=== PATIENT | female | born 1980 | race Caucasian/White ===

== ENCOUNTER 2022-02-08 07:33 | Inpatient (IN) | payer BC ==
[2022-02-07 12:18] LABS: #Basophils 0.1 10x3/uL (0.0-0.2); #Eosinphils 0.1 10x3/uL (0.0-0.5); #Monocytes 1.1 10x3/uL (0.0-1.1); #Neutrophils 8.1 10x3/uL (1.5-8.4); %Basophils 0.4 % (0.0-2.0); %Eosinophils 1.2 % (0.0-6.0); %Lymphocytes 16.4 % (18.0-47.0); %Monocytes 9.5 % (0.0-10.0); Hemoglobin 13.1 g/dL (12.0-15.5); Mean Corpuscular HGB CONC 34.8 g/dL (32.0-36.0); Mean Corpuscular Hemoglobin 31.3 pg (27.0-33.0); Mean Corpuscular Volume 89.7 fl (81.6-98.3); Mean Platelet Volume 9.1 fl (7.4-10.4); Platelet Count 280 10x3/uL (150-450); RBC Distribution Width 13.2 % (11.5-14.5); Red Blood Cell (RBC) Count 4.19 10x6/uL (3.90-5.03); White Blood Cell (WBC) Count 11.2 10x3/uL (3.5-10.5)
[2022-02-07 12:41] LABS: SARS-CoV-2 NAA Rapid Test Not Detected (NotDetected)
[2022-02-07 12:41] LABS: Syphilis Antibody Nonreactive (Nonreactive); Syphilis Antibody Index 0.05 S/CO (<1.00 Non-Reactive)
[2022-02-07 12:43] LABS: HBSAg Index 0.17 S/CO (0-0.99); Hep B Surf Ag Non-Reactive S/CO (NonReactive)
[2022-02-08] MEDS: Lactated Ringer's 1,000 ML IV SCH ×3 (07:55→17:56)
[2022-02-08 08:07] VITALS: BMI 46.3
[2022-02-08] MEDS ORDERED: Famotidine/PF 20 mg/2ml Vial SLOW IVP PRN ×2 (08:36→09:15)
[2022-02-08] MEDS ORDERED: hydrALAZINE 20 MG/ML VIAL SLOW IVP PRN ×2 (08:36→08:52)
[2022-02-08] MEDS ORDERED: Promethazine HCl 25 MG/ML VIAL IM PRN ×2 (08:36→09:27)
[2022-02-08] MEDS ORDERED: Lactated Ringer's 1,000 ML IV SCH (08:36)
[2022-02-08] MEDS ORDERED: CEFAZOLIN 2 GM in Sodium Chloride 0.9% 100 ML IVPB SCH ×2 (08:36→09:15)
[2022-02-08] MEDS ORDERED: Bicitra 30 ML UDCUP PO PRN (08:36)
[2022-02-08] MEDS ORDERED: Ondansetron PF 4 MG/2 ML Vial IVP PRN ×2 (08:36→09:27)
[2022-02-08] MEDS ORDERED: Lanolin Ointment 7 GM TUBE TOP PRN (08:52)
[2022-02-08] MEDS ORDERED: Bisacodyl 10 MG SUPP PR PRN (08:52)
[2022-02-08] MEDS ORDERED: HYDROcodone/Acetaminophen 5/325 mg Tablet PO PRN ×4 (08:52→22:00)
[2022-02-08] MEDS ORDERED: diphenhydrAMINE 25 MG CAP PO PRN (08:52)
[2022-02-08] MEDS ORDERED: Boostrix 0.5 ML (Tdap) VIAL (>/=7 yrs of age) IM ONE (08:52)
[2022-02-08] MEDS ORDERED: Tranexamic Acid 1,000 MG/10 ML VIAL ONE (08:55)
[2022-02-08] MEDS ORDERED: Carboprost 250 MCG/ML AMP ONE (08:55)
[2022-02-08] MEDS ORDERED: Methylergonovine 0.2 MG/ML VIAL ONE (08:57)
[2022-02-08] MEDS ORDERED: ePHEDrine Sulfate 50 MG/10 ML VIAL ONE (09:16)
[2022-02-08] MEDS ORDERED: Ketorolac Tromethamine 30 MG/ML VIAL ONE (09:16)
[2022-02-08] MEDS ORDERED: Morphine PF 10 MG/10 ML VIAL ONE (09:16)
[2022-02-08] MEDS ORDERED: PHENYLEPHRINE-NS 100 MCG/ML 10 ML SYRINGE ONE (09:16)
[2022-02-08] MEDS ORDERED: Phenylephrine 40 MG/NS 250 ML 250 ML ONE (09:16)
[2022-02-08] MEDS ORDERED: Oxytocin 10 UNITS/ML VIAL ONE (09:16)
[2022-02-08] MEDS ORDERED: Ondansetron PF 4 MG/2 ML Vial ONE (09:16)
[2022-02-08] MEDS ORDERED: Promethazine HCl 25 MG SUPP PR PRN (09:27)
[2022-02-08] MEDS ORDERED: Naloxone HCl 0.4 mg/ml Vial IVP PRN ×2 (09:27)
[2022-02-08] MEDS ORDERED: Moisturizing Cream (Eucerin) 113 GM JAR TOP PRN (09:27)
[2022-02-08] MEDS ORDERED: Naloxone HCl 0.4 mg/ml Vial IV PRN (09:27)
[2022-02-08] MEDS ORDERED: Fentanyl 100 MCG/2 ML VIAL SLOW IVP PRN (09:27)
[2022-02-08] MEDS ORDERED: Meperidine HCl/PF 25 MG/ML VIAL SLOW IVP PRN (09:27)
[2022-02-08] MEDS ORDERED: diphenhydrAMINE 50 MG/ML VIAL IVP PRN (09:27)
[2022-02-08] MEDS ORDERED: Ondansetron HCl/PF 4 MG/2 ML Vial IVP PRN (09:27)
[2022-02-08] MEDS ORDERED: Communication Order-Pharmacy FS SCH (09:30)
[2022-02-08] MEDS ORDERED: Fentanyl 100 MCG/2 ML VIAL ONE (10:36)
[2022-02-08] MEDS ORDERED: NS w/ Oxytocin 30 units 500 ML ONE (13:51)
[2022-02-08] MEDS ORDERED: Ketorolac Tromethamine 30 MG/ML VIAL IVP SCH (16:25)
[2022-02-08] MEDS ORDERED: Ketorolac Tromethamine 30 MG/ML VIAL IVP PRN (16:30)
[2022-02-08] MEDS: Docusate 100 MG CAP PO SCH (17:54)
[2022-02-08] MEDS: Prenatal Vitamin 1 TAB PO SCH (17:54)
[2022-02-08] MEDS: Ferrous Sulfate 325 MG TAB PO SCH ×2 (17:54→19:10)
[2022-02-09] MEDS: Lactated Ringer's 1,000 ML IV SCH ×3 (01:37→17:36)
[2022-02-09 05:10] LABS: Hemoglobin 11.1 g/dL (12.0-15.5); Mean Corpuscular HGB CONC 34.4 g/dL (32.0-36.0); Mean Corpuscular Hemoglobin 31.5 pg (27.0-33.0); Mean Corpuscular Volume 91.8 fl (81.6-98.3); Platelet Count 247 10x3/uL (150-450); Red Blood Cell (RBC) Count 3.52 10x6/uL (3.90-5.03); White Blood Cell (WBC) Count 11.9 10x3/uL (3.5-10.5)
[2022-02-09] MEDS: Docusate 100 MG CAP PO SCH ×3 (08:20→21:10)
[2022-02-09] MEDS: Ferrous Sulfate 325 MG TAB PO SCH ×2 (08:21→21:11)
[2022-02-09] MEDS: Simethicone Chewable 80 MG TAB PO PRN ×2 (08:57→21:37)
[2022-02-09] MEDS: Prenatal Vitamin 1 TAB PO SCH (08:57)
[2022-02-09] MEDS: Ibuprofen 800 MG TAB PO SCH ×2 (09:49→17:36)
[2022-02-10] MEDS: Ibuprofen 800 MG TAB PO SCH ×2 (00:34→09:05)
[2022-02-10] MEDS: Lactated Ringer's 1,000 ML IV SCH ×3 (02:27→10:20)
[2022-02-10] MEDS: Ferrous Sulfate 325 MG TAB PO SCH (07:24)
[2022-02-10] MEDS: Docusate 100 MG CAP PO SCH (07:59)
[2022-02-10] MEDS: Prenatal Vitamin 1 TAB PO SCH (07:59)
[2022-02-10 08:05] VITALS: BP 119/62; TEMP 97.9
== END 2022-02-10 12:40 | disposition home or self-care (01) | DRG 787 ==
LOC: CSHLD 07:33 → CSHPP 12:43
PROVIDERS: ADMIT Obstetrics & Gynecology; ATTEND Obstetrics & Gynecology
PROC: 10D00Z1 Extraction of Products of Conception, Low, Open Approach (ICD-10-PCS; principal; 2022-02-08)
DX: O34.211 Maternal care for low transverse scar from previous cesarean delivery (principal); O72.1 Other immediate postpartum hemorrhage; Z20.822 Contact with and (suspected) exposure to COVID-19; Z3A.39 39 weeks gestation of pregnancy; Z37.0 Single live birth; Z88.8 Allergy status to other drugs, medicaments and biological substances; Z88.0 Allergy status to penicillin; E66.9 Obesity, unspecified; O99.214 Obesity complicating childbirth
CPT/HCPCS: 36415; 51702; 85025; 85027; 86780; 86850; 86900; 86901; 87340; J1885; J2274; J2405; J2590; J3010; J3490; J7120; S0028; U0002